=== PATIENT | female | born 1955 | race Caucasian/White ===

== ENCOUNTER 2018-06-11 12:22 | Emergency (ER) | payer MEDICAID ==
[2018-06-11 12:25] VITALS: BP 133/76
[2018-06-11] MEDS ORDERED: TDAP ADULT 0.5 ML INJ (BOOSTRIX) IM ONE (12:34)
--- NOTE | 2018-06-11 12:42 | EDPHY ---
H & P Time Seen by Provider: 06/11/18 12:29 HPI/ROS: CHIEF COMPLAINT: Left middle digit injury HISTORY OF PRESENT ILLNESS: 63-year-old pakxy-[id number]-yeosfjdo female with out-of- date tetanus sustained accidental rn labor delivery injury to her left middle digit distal phalanx shortly prior to arrival she was peeling potatoes. No paresthesia. Occurred shortly prior to arrival. This was accidental. No sensory or motor deficits. PHYSICAL EXAM (Prior to examination, patient consented to physical exam, hands were washed and my usual and customary physical exam procedures followed) 1) GENERAL: Well-developed, well-nourished, alert and oriented. Appears to be in no acute distress. 2) HEAD: Normocephalic 3) HEENT: sclera anicteric 4) LUNGS: Breathing comfortably. 5) SKIN: Left middle digit distal phalanx 10 mm x 5 mm skin avulsion with slow capillary like bleed. No signs of infection. Smoking Status: Never smoked Constitutional: Initial Vital Signs Temperature (C) 36.5 C 06/11/18 12:23 Heart Rate 96 06/11/18 12:23 Respiratory Rate 16 06/11/18 12:23 Blood Pressure 133/76 H 06/11/18 12:23 O2 Sat (%) 98 06/11/18 12:23 O2 Delivery Mode Room Air Allergies/Adverse Reactions: No Known Allergies Allergy (Unverified 06/11/18 12:23) Home Medications: Medication Instructions Recorded NK [No Known Home Meds] 06/11/18 MDM/Departure - MDM Procedures: Procedure: Wound management. I explained the indications, risks and benefits for both laceration repair and anesthetic administration. Verbal consent was obtained from the patient. The left middle digit was anesthetized using 0.5% bupivicaine without epinephrine digital nerve block. After anesthetic administered the patient was observed for a period of time and had no apparent adverse effects. The wound was cleaned, prepped, Surgicel dressing placed resulting in hemostasis ED Course/Re-evaluation: Care of patient under supervision of secondary supervising physician Dr Tim Lin with whom I discussed case. - Depart Disposition: Home, Routine, Self-Care Clinical Impression: Skin avulsion left finger Condition: Good Instructions: Skin Avulsion (ED) Additional Instructions: Return to the ER if you develop redness, swelling, discharge, warmth to the wound, red streaks going up your arm, or any other symptoms that concern you. Referrals: [facility],. [Primary Care Provider] - 2-3 days, call for appt.
== END 2018-06-11 13:12 | disposition home or self-care (01) ==
DX: S61.203A Unspecified open wound of left middle finger without damage to nail, initial encounter (principal); W27.4XXA Contact with kitchen utensil, initial encounter; Z23 Encounter for immunization